=== PATIENT | female | born 1965 | race Caucasian/White ===

== ENCOUNTER 2016-06-01 11:03 | Emergency (ER) | payer MEDICAID ==
[~2016-06-01] VITALS: Ht 165.1 cm; Wt 86.2 kg
[2016-06-01 18:44] LABS: Basophils # (auto) 0 uL; Basophils % (auto) 0.4 % (0.0-2.0); Eosinophils # (auto) 0.2 uL; Eosinophils % (auto) 2.1 % (0.0-7.0); Hematocrit 50.2 % (36.0-46.0); Hemoglobin 16.7 g/dL (12.2-16.2); Lymphocytes # (auto) 3.2 uL; Lymphocytes % (auto) 34.4 % (10.0-50.0); Mean Corpuscular Hemoglobin 29.8 pg (28.0-32.0); Mean Corpuscular Hgb Conc. 33.3 g/dL (32.0-36.0); Mean Corpuscular Volume 89.6 fL (80.0-100.0); Mean Platelet Volume 7.4 fL (7.4-10.4); Monocytes # (auto) 0.4 uL; Monocytes % (auto) 4.5 % (0.0-12.0); Neutrophils # (auto) 5.5 uL; Neutrophils % (auto) 58.6 % (37.0-80.0); Platelet Count (auto) 213 10^3/uL (140-450); Red Cell Distribution Width 13.3 % (11.6-16.0); White Blood Cell 9.4 10^3/uL (4.4-10.8)
[2016-06-01 19:07] LABS: Calcium 8.6 mg/dL (8.5-10.1); Potassium 4.3 mmol/L (3.5-5.1)
[2016-06-01 19:30] LABS: Albumin 4.2 g/dL (3.4-5.0); Bilirubin, Total 0.5 mg/dL (0.2-1.0); Total Protein 7.9 g/dL (6.4-8.2)
[2016-06-01 19:45] LABS: Partial Thromboplastin Time 25.5 sec (22.64-33.71); Prothrombin Time 10.3 sec (9.37-12.3)
[2016-06-01 23:20] VITALS: BP 154/76
== END 2016-06-01 23:24 | disposition home or self-care (01) ==
LOC: ER 11:18
DX: R10.32 Left lower quadrant pain (principal); M62.838 Other muscle spasm; I10 Essential (primary) hypertension; E78.5 Hyperlipidemia, unspecified; F17.210 Nicotine dependence, cigarettes, uncomplicated; E11.40 Type 2 diabetes mellitus with diabetic neuropathy, unspecified
CPT/HCPCS: 36415; 74176; 80053; 83690; 85025; 85610; 85730; 93970

== ENCOUNTER 2016-09-17 13:02 | Emergency (ER) | payer MEDICAID, OTHER ==
[~2016-09-17] VITALS: Ht 165.1 cm; Wt 91.2 kg
[2016-09-17 13:50] LABS: Basophils # (auto) 0.1 uL; Basophils % (auto) 0.7 % (0.0-2.0); Eosinophils # (auto) 0.1 uL; Hematocrit 47.9 % (36.0-46.0); Hemoglobin 16.2 g/dL (12.2-16.2); Lymphocytes # (auto) 3.6 uL; Lymphocytes % (auto) 32.4 % (10.0-50.0); Mean Corpuscular Hemoglobin 30.1 pg (28.0-32.0); Mean Corpuscular Hgb Conc. 33.8 g/dL (32.0-36.0); Mean Corpuscular Volume 89.2 fL (80.0-100.0); Mean Platelet Volume 7.3 fL (7.4-10.4); Monocytes # (auto) 0.7 uL; Monocytes % (auto) 6.6 % (0.0-12.0); Neutrophils # (auto) 6.6 uL; Neutrophils % (auto) 59.3 % (37.0-80.0); Platelet Count (auto) 264 10^3/uL (140-450); White Blood Cell 11.1 10^3/uL (4.4-10.8)
[2016-09-17] MEDS: SODIUM CHLORIDE 0.9% 1,000 ML IVB ONE ×2 (13:50→14:15)
[2016-09-17 14:20] LABS: Alkaline Phosphatase 109 U/L (45-117); Anion Gap 11 (5-15); Aspartate Aminotransferase 25 U/L (15-37); BUN/Creatinine Ratio 11.5; Bilirubin, Total 0.6 mg/dL (0.2-1.0); Blood Urea Nitrogen 11 mg/dL (7-18); Calcium 8.8 mg/dL (8.5-10.1); Carbon Dioxide 20 mmol/L (21-32); Chloride 112 mmol/L (98-107); GFR African American 78 mL/min; GFR Non-African American 65 mL/min; Glucose 160 mg/dL (74-106); Magnesium 2.3 mg/dL (1.6-2.6); Potassium 3.3 mmol/L (3.5-5.1); Sodium 143 mmol/L (136-145)
[2016-09-17 15:44] LABS: Salicylate 4.6 mg/dL (2.8-20.0)
[2016-09-17 15:47] LABS: Acetaminophen < 2.0 ug/mL (10-30)
[2016-09-17 17:35] LABS: Urine Bilirubin Negative (Negative); Urine Blood TRACE /uL (Negative); Urine Color Yellow (Yellow); Urine Glucose TRACE mg/dL (Normal); Urine Ketone 1+ (Negative); Urine Nitrite Negative (Negative); Urine RBC 1 /hpf (0 - 4); Urine Squamous Epithelial Cell FEW /hpf (<5); Urine Urobilinogen Normal (Negative)
[2016-09-17] MEDS ORDERED: LORazepam 2MG/ML-1ML VIAL ONE (18:01)
[2016-09-17] MEDS ORDERED: LORazepam 2MG/ML-1ML VIAL IV ONE (18:15)
[2016-09-19] MEDS: metFORMIN HYDROCHLORIDE 500 MG TAB PO SCH (09:30)
[2016-09-19] MEDS ORDERED: DIPHENOXYLATE W/ATROPINE 2.5 MG TAB PO ONE (15:30)
[2016-09-20] MEDS ORDERED: metFORMIN HYDROCHLORIDE 500 MG TAB ONE ×2 (10:04→17:54)
[2016-09-20] MEDS: metFORMIN HYDROCHLORIDE 500 MG TAB PO SCH ×2 (10:10→18:13)
[2016-09-20 17:30] VITALS: BP 140/75
== END 2016-09-20 18:52 | disposition short-term general hospital (02) ==
LOC: EDUNIT# 13:02 → ER 13:02
DX: R45.851 Suicidal ideations (principal); R41.82 Altered mental status, unspecified; E11.9 Type 2 diabetes mellitus without complications; I10 Essential (primary) hypertension; J44.9 Chronic obstructive pulmonary disease, unspecified; F17.210 Nicotine dependence, cigarettes, uncomplicated; E78.5 Hyperlipidemia, unspecified; R51 Headache; F41.9 Anxiety disorder, unspecified; Z88.6 Allergy status to analgesic agent
CPT/HCPCS: 36415; 70450; 80053; 80307; 80320; 80329; 81001; 82962; 83735; 85025; 93005; 94761; 96361; 96374; 99285; J2060; J7030